=== PATIENT | male | born 1940 | race Caucasian/White ===

== ENCOUNTER 2025-03-14 09:47 | Outpatient (RCR) | payer MEDICARE, SELFPAY ==
[2025-03-08 09:50] VITALS: BP 100/63; PULSE 75; TEMP 36.6; O2SAT 96
[2025-03-08] MEDS: CEFTAZIDIME 1,000 MG in 0.9 % SODIUM CHLORIDE 50 ML 100 MG IV ×2 (10:17→20:49)
[2025-03-08 20:50] VITALS: BP 122/69; PULSE 83; TEMP 36.4; O2SAT 94
[2025-03-08 21:40] VITALS: BP 122/68; PULSE 80; TEMP 36.4; O2SAT 95
[2025-03-09 09:39] VITALS: BP 125/61; PULSE 72; TEMP 36.6; O2SAT 93
[2025-03-09] MEDS: CEFTAZIDIME 1,000 MG in 0.9 % SODIUM CHLORIDE 50 ML 100 MG IV ×2 (09:46→20:40)
[2025-03-09 10:17] VITALS: BP 122/69; PULSE 68; TEMP 36.7; O2SAT 98
[2025-03-09 20:38] VITALS: BP 133/56; PULSE 91; TEMP 36.4; O2SAT 93
[2025-03-10] MEDS: CEFTAZIDIME 1,000 MG in 0.9 % SODIUM CHLORIDE 50 ML 100 MG IV ×2 (09:55→20:50)
[2025-03-10 10:08] VITALS: BP 122/72; PULSE 70; TEMP 36.6; O2SAT 98
[2025-03-10 20:50] VITALS: BP 131/64; PULSE 84; TEMP 36.4; O2SAT 97
[2025-03-11 09:53] VITALS: BP 131/77; PULSE 69; TEMP 36.4; O2SAT 98
[2025-03-11] MEDS: CEFTAZIDIME 1,000 MG in 0.9 % SODIUM CHLORIDE 50 ML 100 MG IV ×2 (09:55→20:43)
[2025-03-11 20:48] VITALS: BP 136/78; PULSE 88; TEMP 36.4; O2SAT 97
[2025-03-12 09:49] VITALS: BP 136/65; PULSE 70; TEMP 36.4; O2SAT 97
[2025-03-12] MEDS: CEFTAZIDIME 1,000 MG in 0.9 % SODIUM CHLORIDE 50 ML 100 MG IV ×2 (09:52→20:49)
[2025-03-12 20:44] VITALS: BP 116/64; PULSE 78; TEMP 36.6; O2SAT 98
[2025-03-13 10:02] VITALS: BP 96/53; PULSE 88; TEMP 36.3; O2SAT 94
[2025-03-13] MEDS: CEFTAZIDIME 1,000 MG in 0.9 % SODIUM CHLORIDE 50 ML 100 MG IV ×2 (10:18→20:47)
[2025-03-13 20:50] VITALS: BP 147/66; PULSE 81; TEMP 36.8; O2SAT 93
[2025-03-14] MEDS: CEFTAZIDIME 1,000 MG in 0.9 % SODIUM CHLORIDE 50 ML 100 MG IV ×2 (09:54→21:45)
[2025-03-14 09:57] VITALS: BP 136/71; PULSE 73; TEMP 36.4; O2SAT 97
[2025-03-14 21:42] VITALS: BP 156/72; PULSE 78; TEMP 36.6; O2SAT 96
== END 2025-03-21 23:59 | disposition home or self-care (01) ==
LOC: INF 09:47
PROVIDERS: PCP Family Medicine; Visit Provider Nurse Practitioner Family
DX: N39.0 Urinary tract infection, site not specified (principal)
CPT/HCPCS: 96365; 96366; G0463; J0713